=== PATIENT | male | born 1995 | race Caucasian/White ===

== ENCOUNTER 2021-01-03 10:50 | Emergency (ER) | payer OTHER ==
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
== END 2021-01-03 12:30 | disposition home or self-care (01) ==
LOC: LB.ED 10:50
DX: Z03.89 Encounter for observation for other suspected diseases and conditions ruled out (principal)
CPT/HCPCS: 99282; 99283